=== PATIENT | male | born 1995 | race Caucasian/White ===

== ENCOUNTER 2019-09-08 21:26 | Emergency (ER) | payer SELFPAY ==
[2019-09-08 21:55] VITALS: BP 145/74
[2019-09-08] MEDS ORDERED: ULTRAM50 M1 PO (22:24)
[2019-09-08] MEDS ORDERED: AMOXICILLIN500 MG PO (22:24)
== END 2019-09-08 22:40 | disposition home or self-care (01) | DRG 603 ==
LOC: ED 21:26
DX: L08.9 Local infection of the skin and subcutaneous tissue, unspecified (principal); L98.9 Disorder of the skin and subcutaneous tissue, unspecified